=== PATIENT | female | born 1995 | race Caucasian/White ===

== ENCOUNTER 2017-10-18 23:02 | Emergency (ER) | payer OTHER, MEDICAID ==
[~2017-10-18] VITALS: Ht 160 cm; Wt 47.6 kg
[2017-10-18 23:32] LABS: HEMATOCRIT 47.4 % (37.0-47.0); HEMOGLOBIN 15.8 gm/dL (12.0-15.0); MCH 30.2 pg (26.0-34.0); MCHC 33.3 g/dL (28.0-37.0); MCV 90.7 fL (80.0-100.0); MPV 7.8 fl. (7.2-11.1); NUCLEATED RBCS 0 /100WBC; PLATELET COUNT* 279 thou/uL (150-400); RBC 5.23 mil/uL (4.20-5.00); RDW-CV 13.4 % (10.5-14.5); WBC 16.7 thou/uL (4.0-11.0)
[2017-10-18 23:45] LABS: CALCIUM 8.8 mg/dL (8.5-10.1); CREATININE 0.7 mg/dL (0.6-1.3); POTASSIUM 4.1 mmol/L (3.5-5.1)
[2017-10-18 23:49] LABS: ALBUMIN 4.1 g/dL (3.4-5.0); TOTAL BILIRUBIN 2.9 mg/dL (<0.1-1.0); TOTAL PROTEIN 7.5 g/dL (6.4-8.2)
[2017-10-19 00:03] LABS: URINE BLOOD 1+ (Negative); URINE CLARITY CLEAR; URINE COLOR YELLOW; URINE GLUCOSE-RANDOM NEGATIVE (Negative); URINE LEUKOCYTES NEGATIVE (Negative); URINE NITRITE NEGATIVE (Negative); URINE PROTEIN TRACE (Negative); URINE SPECIFIC GRAVITY 1.025 (1.005-1.030)
[2017-10-19 00:04] LABS: URINE BILIRUBIN 1+ (Negative); URINE KETONES 3+ (Negative)
[2017-10-19 00:05] LABS: ICTOTEST (BILI CONFIRMATORY) Negative (Negative)
[2017-10-19 00:28] LABS: CASTS None Seen /LPF (None Seen); CRYSTALS None Seen /LPF (None Seen); MUCUS >6 Heavy strn/LPF (None Seen); SQUAMOUS 4-10 Moderate /LPF (0-3); URINE RBC 3-10 Few /HPF (0-2); URINE WBC None Seen /HPF (0-5)
[2017-10-19 00:57] LABS: ABSOLUTE LYMPHOCYTES 0.5 thou/uL (0.8-5.3); ABSOLUTE MONOCYTES 0.7 thou/uL (0.0-1.2); ABSOLUTE NEUTROPHILS 15.5 thou/uL (1.6-8.1); ANISOCYTOSIS Occasional; PLATELET ESTIMATE ADEQUATE; TOXIC GRANULATION 1+
[2017-10-19] MEDS ORDERED: ZOFRAN ODT4 MG PO (02:16)
[2017-10-19 02:40] VITALS: BP 113/61
== END 2017-10-19 02:35 | disposition home or self-care (01) ==
LOC: M.ERS 23:02
PROVIDERS: Physician Assistant
DX: R11.2 Nausea with vomiting, unspecified (principal); R19.7 Diarrhea, unspecified; R10.33 Periumbilical pain; Z88.1 Allergy status to other antibiotic agents

== ENCOUNTER 2018-08-07 21:49 | Emergency (ER) | payer OTHER, MEDICAID ==
[~2018-08-07] VITALS: Ht 157.5 cm; Wt 52.2 kg
[~2018-08-07 21:49] MED LIST: ZOFRAN ODT4 MG PO
[2018-08-07] MEDS ORDERED: NABUMETONE 750750 M1 PO ×2 (22:35→22:37)
[2018-08-07] MEDS ORDERED: AUGMENTIN 875-1 EACH PO ×2 (22:35→22:37)
[2018-08-07 22:39] LABS: INFLUENZA A ANTIGEN None Detected (None Detect); INFLUENZA B ANTIGEN None Detected (None Detect)
[2018-08-07 22:46] VITALS: BP 125/70
== END 2018-08-07 22:48 | disposition home or self-care (01) ==
LOC: M.ERS 21:49
PROVIDERS: Nurse Practitioner Family
DX: J02.0 Streptococcal pharyngitis (principal); Z88.1 Allergy status to other antibiotic agents

== ENCOUNTER 2018-10-25 15:10 | Emergency (ER) | payer OTHER ==
[~2018-10-25] VITALS: Ht 160 cm; Wt 52.2 kg
[~2018-10-25 15:10] MED LIST changes: +AUGMENTIN 875-1 EACH PO; +NABUMETONE 750750 M1 PO
[2018-10-25 15:37] LABS: URINE BILIRUBIN NEGATIVE (Negative); URINE BLOOD TRACE (Negative); URINE CLARITY CLEAR; URINE COLOR YELLOW; URINE GLUCOSE-RANDOM NEGATIVE (Negative); URINE KETONES NEGATIVE (Negative); URINE LEUKOCYTES-REFLEX NEGATIVE (Negative); URINE NITRITE-REFLEX NEGATIVE (Negative); URINE PROTEIN NEGATIVE (Negative); URINE SPECIFIC GRAVITY 1.025 (1.005-1.030); URINE UROBILINOGEN 0.2 E.U./dl (0.2-1.0)
[2018-10-25 15:59] LABS: ABSOLUTE BASOPHILS 0.1 thou/uL (0.0-0.2); ABSOLUTE EOSINOPHILS 0.3 thou/uL (0.0-0.7); ABSOLUTE MONOCYTES 0.5 thou/uL (0.0-1.2); BASOPHILS 0.7 %; EOSINOPHILS 3.9 %; LYMPHOCYTES 25.3 %; MCH 31.8 pg (26.0-34.0); MCHC 33.9 g/dL (28.0-37.0); MCV 93.8 fL (80.0-100.0); MONOCYTES 6.9 %; NUCLEATED RBCS 0 /100WBC; PLATELET COUNT* 272 thou/uL (150-400); POLYS 63.2 %; RBC 5.01 mil/uL (4.20-5.00); RDW-CV 14.2 % (10.5-14.5); WBC 7.9 thou/uL (4.0-11.0)
[2018-10-25 16:08] LABS: ANION GAP 6 mmol/L (7-16); BUN 11 mg/dL (7-18); CALCIUM 8.4 mg/dL (8.5-10.1); CHLORIDE 105 mmol/L (98-107); CO2 29 mmol/L (21-32); CREATININE 0.7 mg/dL (0.6-1.3); GLUCOSE 90 mg/dL (70-99); POTASSIUM 3.9 mmol/L (3.5-5.1); SODIUM 140 mmol/L (136-145)
[2018-10-25 16:15] LABS: ALBUMIN 3.6 g/dL (3.4-5.0); ALKALINE PHOSPHATASE 87 U/L (46-116); LIPASE 102 U/L (73-393); SGOT 10 U/L (15-37); SGPT 11 U/L (30-65); TOTAL BILIRUBIN 2.2 mg/dL (<0.1-1.0); TOTAL PROTEIN 6.8 g/dL (6.4-8.2); TROPONIN-I LEVEL <0.06 ng/mL (<0.06)
[2018-10-25] MEDS ORDERED: NAPROSYN500 MG PO (17:33)
[2018-10-25] MEDS ORDERED: ZOFRAN ODT4 MG PO (17:33)
[2018-10-25] MEDS ORDERED: BENTYL 20 MG TA20 M1 PO (17:33)
[2018-10-25 17:50] VITALS: BP 105/56
--- NOTE | 2018-10-26 10:23 | EKG ---
[place] [address] ELECTROCARDIOGRAM REPORT Name: YUKI SONG Room: [facility]#: [id number] Admission: 10/25/18 Attend Phys: Discharge: 10/25/18 Date of : [birth year] Report #: [id number] THIS REPORT FOR: //name// [facility] ED Test Date: 2018-10-25 Test Time: 15:46:39 Pat Name: YUKI SONG Department: Room: Gender: F [place] Man: Dean MASON : 1995 Requested By: Case Stephen Order Number: [id number] : Cristo Velazquez Measurements Intervals [place] Rate: 66 P: 35 CT: 116 QRS: 34 QRSD: 85 T: 11 QT: 394 QTc: 413 Interpretive Statements Sinus rhythm Borderline short CT interval No previous ECG available for comparison Electronically Signed On 10-26-2018 10:23:36 NOC TECHNICIAN by Cristo Velazquez [email or web address] <ELECTRONICALLY SIGNED> By: Cristo Velazquez MD, [facility] 10/26/18 1023 1546 1546 Cristo Velazquez MD, FACC /EPI
== END 2018-10-25 17:50 | disposition home or self-care (01) ==
LOC: M.ERS 15:10
PROVIDERS: Nurse Practitioner Family
DX: M94.0 Chondrocostal junction syndrome [Tietze] (principal); K80.50 Calculus of bile duct without cholangitis or cholecystitis without obstruction; F17.210 Nicotine dependence, cigarettes, uncomplicated; Z88.1 Allergy status to other antibiotic agents

== ENCOUNTER 2019-05-29 11:30 | Emergency (ER) | payer OTHER ==
[~2019-05-29] VITALS: Ht 160 cm; Wt 56.7 kg
[~2019-05-29 11:30] MED LIST changes: +BENTYL 20 MG TA20 M1 PO; +NAPROSYN500 MG PO
[2019-05-29] MEDS ORDERED: PERCOCET 5-3251 EACH PO (12:53)
[2019-05-29 13:23] VITALS: BP 103/59
== END 2019-05-29 13:23 | disposition home or self-care (01) ==
LOC: M.ERS 11:30
DX: S10.93XA Contusion of unspecified part of neck, initial encounter (principal); S30.0XXA Contusion of lower back and pelvis, initial encounter; Z88.1 Allergy status to other antibiotic agents; V87.8XXA Person injured in other specified noncollision transport accidents involving motor vehicle (traffic), initial encounter; Y93.89 Activity, other specified; Y92.413 State road as the place of occurrence of the external cause; Y99.8 Other external cause status

== ENCOUNTER 2019-08-06 17:10 | Emergency (ER) | payer OTHER ==
[~2019-08-06] VITALS: Ht 160 cm; Wt 54.4 kg
[~2019-08-06 17:10] MED LIST changes: +PERCOCET 5-3251 EACH PO
[2019-08-06] MEDS ORDERED: AUGMENTIN 875-1 EACH PO (17:45)
[2019-08-06] MEDS ORDERED: CIPRO HC OTIC S10 ML OTIC (17:45)
[2019-08-06] MEDS ORDERED: HYDROCODON-ACE1 EAC7 PO (17:45)
[2019-08-06 18:14] VITALS: BP 110/68
== END 2019-08-06 18:15 | disposition home or self-care (01) ==
LOC: M.ERS 17:10
DX: H66.92 Otitis media, unspecified, left ear (principal); H72.92 Unspecified perforation of tympanic membrane, left ear; Z88.1 Allergy status to other antibiotic agents

== ENCOUNTER → 2019-08-07 | Outpatient (CLI) | payer OTHER ==
[~2019-08-07] MED LIST changes: +CIPRO HC OTIC S10 ML OTIC; +HYDROCODON-ACE1 EAC7 PO
== END ==
LOC: M.LAB 06:29 → M.MRI 07:30
DX: M40.292 Other kyphosis, cervical region (principal); S06.0X9D Concussion with loss of consciousness of unspecified duration, subsequent encounter; R41.0 Disorientation, unspecified; X58.XXXD Exposure to other specified factors, subsequent encounter

== ENCOUNTER 2019-08-08 03:00 | Emergency (ER) | payer OTHER ==
[~2019-08-08] VITALS: Ht 160 cm; Wt 54.4 kg
[2019-08-08 03:46] LABS: INFLUENZA A ANTIGEN Negative (Negative); INFLUENZA B ANTIGEN Negative (Negative)
[2019-08-08 04:10] VITALS: BP 127/76
== END 2019-08-08 04:10 | disposition home or self-care (01) ==
LOC: M.ERS 03:00
PROVIDERS: Emergency Medicine Emergency Medical Services
DX: J02.0 Streptococcal pharyngitis (principal); Z88.1 Allergy status to other antibiotic agents

== ENCOUNTER 2020-05-02 03:23 | Emergency (ER) | payer OTHER ==
[~2020-05-02] VITALS: Ht 160 cm; Wt 54.4 kg
[2020-05-02 03:43] LABS: ABSOLUTE BASOPHILS 0.1 thou/uL (0.0-0.2); ABSOLUTE EOSINOPHILS 0.6 thou/uL (0.0-0.7); ABSOLUTE LYMPHOCYTES 4.1 thou/uL (0.8-5.3); ABSOLUTE MONOCYTES 0.6 thou/uL (0.0-1.2); ABSOLUTE NEUTROPHILS 2.8 thou/uL (1.6-8.1); EOSINOPHILS 7.4 %; HEMATOCRIT 43.1 % (37.0-47.0); HEMOGLOBIN 15.3 gm/dL (12.0-15.0); LYMPHOCYTES 49.7 %; MCH 33.7 pg (26.0-34.0); MCHC 35.4 g/dL (28.0-37.0); MCV 95.2 fL (80.0-100.0); MONOCYTES 7.5 %; MPV 7.8 fl. (7.2-11.1); NUCLEATED RBCS 0 /100WBC; PLATELET COUNT* 287 thou/uL (150-400); POLYS 34.4 %; RBC 4.53 mil/uL (4.20-5.00); RDW-CV 13.7 % (10.5-14.5); WBC 8.2 thou/uL (4.0-11.0)
[2020-05-02 03:57] LABS: CALCIUM 8.2 mg/dL (8.5-10.1); CREATININE 0.9 mg/dL (0.6-1.3); POTASSIUM 3.1 mmol/L (3.5-5.1)
[2020-05-02 04:02] LABS: TOTAL BILIRUBIN 0.8 mg/dL (<0.1-1.0); TOTAL PROTEIN 7.6 g/dL (6.4-8.2)
[2020-05-02] MEDS ORDERED: KEPPRA 500 MG500 M1 PO (05:16)
[2020-05-02 05:49] VITALS: BP 99/52
== END 2020-05-02 05:50 | disposition home or self-care (01) ==
LOC: M.ERS 03:23
PROVIDERS: Family Medicine
DX: F10.129 Alcohol abuse with intoxication, unspecified (principal); Y90.8 Blood alcohol level of 240 mg/100 ml or more; R56.9 Unspecified convulsions; Z88.1 Allergy status to other antibiotic agents

== ENCOUNTER 2020-12-01 15:51 | Emergency (ER) | payer OTHER ==
[~2020-12-01] VITALS: Ht 160 cm; Wt 54.4 kg
[~2020-12-01 15:51] MED LIST changes: +KEPPRA 500 MG500 M1 PO
[2020-12-01] MEDS ORDERED: COMPAZINE10 M2 PO (17:54)
[2020-12-01] MEDS ORDERED: NAPROSYN500 MG PO (17:54)
[2020-12-01] MEDS ORDERED: TYLENOL325 M1 PO (17:54)
[2020-12-01] MEDS ORDERED: ROBAXIN 750 MG750 MG PO (17:54)
[2020-12-01 18:05] VITALS: BP 118/68
== END 2020-12-01 18:06 | disposition home or self-care (01) ==
LOC: M.ERS 15:51
DX: S06.0X0A Concussion without loss of consciousness, initial encounter (principal); S63.592A Other specified sprain of left wrist, initial encounter; Z88.6 Allergy status to analgesic agent; Z88.1 Allergy status to other antibiotic agents; Z88.5 Allergy status to narcotic agent; V29.49XA Motorcycle driver injured in collision with other motor vehicles in traffic accident, initial encounter; Y93.89 Activity, other specified; Y92.89 Other specified places as the place of occurrence of the external cause; Y99.8 Other external cause status

== ENCOUNTER 2021-01-03 17:41 | Emergency (ER) | payer OTHER ==
[~2021-01-03] VITALS: Ht 160 cm; Wt 56.7 kg
[~2021-01-03 17:41] MED LIST changes: +COMPAZINE10 M2 PO; +ROBAXIN 750 MG750 MG PO; +TYLENOL325 M1 PO
[2021-01-03] MEDS ORDERED: ZPAK PO (18:09)
[2021-01-03 18:16] VITALS: BP 126/81
== END 2021-01-03 18:16 | disposition home or self-care (01) ==
LOC: M.ERS 17:41
DX: J02.9 Acute pharyngitis, unspecified (principal); Z88.5 Allergy status to narcotic agent; Z88.1 Allergy status to other antibiotic agents; Z88.6 Allergy status to analgesic agent